=== PATIENT | female | born 1995 | race Caucasian/White ===

== ENCOUNTER → 2022-10-09 10:49 | Outpatient (CLI) | payer BC, SELFPAY ==
--- NOTE | 2022-10-09 10:50 | US_ITS ---
FINAL REPORT CLINICAL HISTORY: Abnormal Bleeding , H/O septate uterus FINDINGS: Transvaginal Ultrasound Technique: Transvaginal sonographic images of the pelvis were obtained. Findings: Bicornuate uterus although the right portion is hypoplastic. Left ovary is obscured by bowel gas. Right ovary is unremarkable. Endometrial thickness is within normal limits. IMPRESSION: No evidence of endometrial thickening or uterine mass. Bicornuate uterus with a hypoplastic right side. Reviewed, Interpreted and Dictated by Souht Beckwith MD Transcribed by Bhargav De Leon Authenticated and [facility]
== END ==
LOC: RAD 10:50
PROVIDERS: PCP Nurse Practitioner Family; Visit Provider Obstetrics & Gynecology
DX: N93.9 Abnormal uterine and vaginal bleeding, unspecified (principal)
CPT/HCPCS: 76830

== ENCOUNTER → 2022-10-23 15:57 | Outpatient (CLI) | payer BC, SELFPAY | PROVIDERS: PCP Nurse Practitioner Family; Visit Provider Obstetrics & Gynecology | DX: Z78.9 Other specified health status (principal) ==

== ENCOUNTER → 2022-10-24 08:24 | Outpatient (CLI) | payer BC, SELFPAY ==
[2022-10-24 09:13] LABS: Basophils # 0.1 K/mm3 (0-0.2); Basophils % 0.8 % (0.1-2.0); Eosinophils # 0.1 K/mm3 (0.0-0.4); Eosinophils % 1.5 % (0.1-12.0); Hematocrit 40.1 % (37.0-47.0); Hemoglobin 13.2 g/dL (12.2-16.2); Lymphocytes # 2.7 K/mm3 (0.7-4.5); Mean Corpuscular HGB Conc 32.8 g/dL (31.8-35.4); Mean Corpuscular Hemoglobin 29.3 pg (27.0-31.2); Mean Corpuscular Volume 89.4 fl (81-99); Mean Platelet Volume 9.3 fl (7.4-10.4); Monocytes # 0.4 K/mm3 (0.1-1.0); Monocytes % 5.4 % (1.7-9.3); Neutrophils # 4.6 K/mm3 (1.8-7.8); Neutrophils % 58.3 % (37.0-80.0); Platelet Count 280 K/mm3 (142-424); Red Blood Count 4.49 M/mm3 (4.20-5.40); Red Cell Distribution Width 12.8 % (11.5-17.5)
[2022-10-24 09:38] LABS: Chloride 99 mmol/L (98-107); Potassium 4.2 mmoL/L (3.5-5.1); Sodium 139 mmol/L (136-145)
[2022-10-24 09:41] LABS: Alanine Aminotransferase 21 U/L (12-78); Albumin/Globulin Ratio 1.3 (1.1-1.8); Alkaline Phosphatase 76 U/L (38-126); Anion Gap 16.2 mEq/L (5-15); Aspartate Amino Transferase 26 U/L (14-36); Blood Urea Nitrogen 6 mg/dl (7-17); Calcium 9.1 mg/dl (8.4-10.2); Carbon Dioxide 28 mmol/L (22.0-30.0); Estimated Glomerular Filt Rate 122 ml/min (>60); GFR (African American) 147 ML/MIN (>60); Glucose 90 mg/dl (74-100); Glucose,Fasting 90 mg/dl (74-100)
[2022-10-24 09:50] LABS: Bilirubin,Total < 0.1 mg/dl (0.2-1.3)
[2022-10-24 10:12] LABS: Thyroid Stimulating Hormone 2.05 uIU/mL (0.465-4.68)
[2022-10-25 08:23] LABS: Estradiol 36.7 pg/mL (.); LH 9.8 mIU/mL (.)
[2022-10-25 18:26] LABS: Hemoglobin A1C 5.4 % (4.0-6.0)
[2022-10-30 10:53] LABS: Testosterone, Total, LC/MS 39 ng/dL (.)
== END ==
PROVIDERS: PCP Nurse Practitioner Family; Visit Provider Obstetrics & Gynecology
DX: Z78.9 Other specified health status (principal)
CPT/HCPCS: 36415; 80053; 82397; 82670; 82947; 83001; 83002; 83036; 83525; 84403; 84443; 85025

== ENCOUNTER → 2023-03-30 10:48 | Outpatient (CLI) | payer BC, SELFPAY ==
--- NOTE | 2023-03-30 10:48 | FL_ITS ---
FINAL REPORT CLINICAL HISTORY: bicornuate uterus. DAP:436.13 time:0.39 FINDINGS: HYSTEROSALPINGOGRAM HISTORY: Infertility. PROCEDURE: The referring physician performed an HSG with injection of contrast. Spot films were obtained. Number of images: 6 Fluoro time: 39 seconds DAP: 436.13 uGym2. FINDINGS: Contrast is identified in the uterus. 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 No endometrial filling defects are identified. Contrast is not seen in the adnexa but free spill was reported by the performing physician. 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 No endometrial filling defects identified. Films reviewed , interpreted and dictated by Dr. Lalita Devlin. Transcribed by Alex Lombardi PA-C. Reviewed, Interpreted and Dictated by Lalita Devlin MD Transcribed by JUAN Cesar Authenticated and [facility]
--- NOTE | 2023-03-30 11:29 | HMH.PROCNOTE ---
[facility] Procedure Note Date: 03/30/23 Time: 11:29 Procedure Note:: Patient was positioned in the dorsal lithotomy position. Speculum was inserted. Cervix and vagina was cleansed with Hibiclens. Tenaculum was placed on anterior lip of the cervix. 20 cc of contrast was drawn up into a syringe and attached to the Dayron HSG cannula. Contrast was flushed through cannula to remove air bubbles and ensure patency. Cannula was then inserted into the cervix. Fluoroscopy was initiated with 10 cc of contrast injected into the endometrial cavity. Fluoroscopy demonstrated contrast immediately flowing from endometrial cavity through bilateral fallopian tubes revealing patent bilateral fallopian tubes. Cavity appeared normal shape. Cannula was removed from the cervix. Tenaculum was removed from the cervix. Hemostasis was noted. Speculum removed from the vagina. Patient tolerated the procedure well.
== END | disposition home or self-care (01) ==
PROVIDERS: PCP Nurse Practitioner Family; Visit Provider Obstetrics & Gynecology
DX: N97.2 Female infertility of uterine origin (principal); Q51.3 Bicornate uterus; Z78.9 Other specified health status
CPT/HCPCS: 74740; Q9967